=== PATIENT | male | born 1960 | race African-American/Black ===

== ENCOUNTER 2019-09-30 05:50 | Day surgery (SDC) | payer BC ==
[2019-09-30] VITALS (8 sets, daily range): BP systolic 106–142; BP diastolic 66–87; PULSE 68–90; TEMP 98–98.1
[~2019-09-30] VITALS: Ht 180.3 cm; Wt 98.6 kg
[2019-09-30] MEDS ORDERED: NORCO 325 MG-51 TAB PO (08:55)
--- NOTE | 2019-09-30 09:20 | NUR ---
Patient returns to room 7 per cart from PACU accompanied by Radha MENA and is awake and alert. Bandaids x3 on abdomen clean and dry. IV fluids infusing and site is free of redness. Siderails up x2 and call light in reach. Allowed to rest.
--- NOTE | 2019-09-30 09:35 | NUR ---
Continues to rest without complaints of pain or nausea. Room air sats 94%.
--- NOTE | 2019-09-30 09:50 | NUR ---
Continues to rest without complaints of pain or nausea.
--- NOTE | 2019-09-30 10:05 | NUR ---
Room air sats 94%. Continues to rest.
--- NOTE | 2019-09-30 10:20 | NUR ---
Continues to rest when not disturbed. IV fluids infused and converted to INT.
--- NOTE | 2019-09-30 10:50 | NUR ---
Awake and eating toast and drinking water.
--- NOTE | 2019-09-30 11:15 | NUR ---
Assisted up to the bathroom. Gait steady. Voids and returns to room. Patient dresses self.
--- NOTE | 2019-09-30 11:25 | NUR ---
Medicated with [place] 5mg one tab for pain at 2/10 and in preparation for discharge. INT needle discontinued and site is free of redness.
--- NOTE | 2019-09-30 11:35 | NUR ---
Dismissal instructions given and signed. Provided script for [place] 5mg and follow up appointment. Voices understanding of these.
--- NOTE | 2019-09-30 11:41 | NUR ---
Patient dismissed to home driven by spouse and taken to the front door per wheelchair and assisted into vehicle by this RN with instructions in hand.
== END 2019-09-30 11:41 | disposition home or self-care (01) ==
LOC: SDCO 05:50
DX: K40.91 Unilateral inguinal hernia, without obstruction or gangrene, recurrent (principal); Z87.891 Personal history of nicotine dependence
CPT/HCPCS: C1781; J0690; J1100; J1885; J2405; J2704; J2710; J3010; J7120